=== PATIENT | female | born 1980 | race Native Hawaiian/Other Pacific Islander ===

== ENCOUNTER 2022-07-18 11:35 | Outpatient (CLI) | payer OTHER | END 2022-07-18 19:17 | disposition home or self-care (01) | LOC: MAMMO 11:35 | PROVIDERS: ATTEND Obstetrics & Gynecology | DX: Z12.31 Encounter for screening mammogram for malignant neoplasm of breast (principal) ==

== ENCOUNTER 2022-08-14 15:00 | Outpatient (CLI) | payer OTHER | END 2022-08-14 19:24 | disposition home or self-care (01) | LOC: MAMMO 15:00 | PROVIDERS: ATTEND Obstetrics & Gynecology | DX: R92.2 Inconclusive mammogram (principal) ==